=== PATIENT | female | born 1975 | race Two or more races ===

== ENCOUNTER 2017-08-08 16:29 | Emergency (ER) | payer OTHER ==
[~2017-08-08] VITALS: Ht 170.2 cm; Wt 59.0 kg
[2017-08-08 16:30] VITALS: TEMP 36.7; Ht 170.2 cm; Wt 59.0 kg
[2017-08-08] MEDS ORDERED: MoRPHine SULFATE 4 MG/ML 1 ML CARP\\VIAL ONE (16:37)
[2017-08-08] MEDS ORDERED: ONDANSETRON INJ 2 MG/ML 2 ML VIAL ONE (16:37)
[2017-08-08] MEDS ORDERED: MoRPHine SULFATE 4 MG/ML 1 ML CARP\\VIAL IV STA (16:39)
[2017-08-08] MEDS ORDERED: ONDANSETRON INJ 2 MG/ML 2 ML VIAL IV STA (16:39)
--- NOTE | 2017-08-08 17:29 | DIAGNOSTIC IMAGING REPORT ---
HEAD WITHOUT CONTRAST (CT) CT DOSE: 910.41 mGy.cm HISTORY: Trauma. Mental status change. CHI/neck pain w/ LOC TECHNIQUE: Multiaxial CT images of the head were performed without the use of intravenous contrast. A dose lowering technique was utilized adhering to the principles of ALARA. Comparison: None. Findings: The paranasal sinuses and mastoid air cells are clear. The calvarium and skull base are intact. The ventricles and sulci are within normal limits. There is no mass, hematoma, midline shift, or acute infarct. Impression: No acute intracranial abnormality. The above report was generated using voice recognition software. It may contain grammatical, syntax or spelling errors. Electronically signed by: Sean Wharton M.D. 08/08/2017 5:27 PM Dictated Date/Time: 08/08/2017 5:27 PM
--- NOTE | 2017-08-08 17:31 | DIAGNOSTIC IMAGING REPORT ---
CERVICAL SPINE W/O CT DOSE: HISTORY: Trauma. Pain. CHI/neck pain w/ LOC TECHNIQUE: Multiaxial CT images of the cervical spine were performed and reformatted in the sagittal and coronal plane without the use of contrast. A dose lowering technique was utilized adhering to the principles of ALARA. COMPARISON: None. FINDINGS: No fractures. No subluxation. Prevertebral soft tissues and the C1-C2 interval are intact. No pneumothorax. IMPRESSION: No fractures within the cervical spine. The above report was generated using voice recognition software. It may contain grammatical, syntax or spelling errors. Electronically signed by: Sean Wharton M.D. 08/08/2017 5:29 PM Dictated Date/Time: 08/08/2017 5:27 PM
[2017-08-08] MEDS ORDERED: TRAM-10 PO (17:59)
[2017-08-08] MEDS ORDERED: ACETAMINOPHEN 500 MG TAB PO ONE (18:10)
[2017-08-08 18:21] VITALS: BP 125/68; PULSE 68; O2SAT 100
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
== END 2017-08-08 18:24 | disposition home or self-care (01) ==
LOC: EDBD 16:29 → C.EDB 16:31
DX: S06.0X1A Concussion with loss of consciousness of 30 minutes or less, initial encounter (principal); W01.198A Fall on same level from slipping, tripping and stumbling with subsequent striking against other object, initial encounter; Y99.0 Civilian activity done for income or pay; R40.2412 Glasgow coma scale score 13-15, at arrival to emergency department; M54.2 Cervicalgia; F17.200 Nicotine dependence, unspecified, uncomplicated